=== PATIENT | male | born 1990 | race African-American/Black ===

== ENCOUNTER 2017-03-30 00:21 | Emergency (ER) | payer OTHER ==
[~2017-03-30] VITALS: Ht 175.3 cm; Wt 69.4 kg
[2017-03-30 01:41] VITALS: BP 118/70
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
== END 2017-03-30 04:30 | disposition home or self-care (01) ==
LOC: ER 00:21
DX: M54.2 Cervicalgia (principal); V89.2XXA Person injured in unspecified motor-vehicle accident, traffic, initial encounter; Y93.89 Activity, other specified; Y99.8 Other external cause status; Y92.410 Unspecified street and highway as the place of occurrence of the external cause
CPT/HCPCS: 72125; 99284